=== PATIENT | female | born 1955 | race Caucasian/White ===

== ENCOUNTER → 2016-09-07 | Outpatient (CLI) | payer OTHER ==
[~2016-09-07] MED LIST: DAILY VALUE1 EACH PO; DIOVAN160 MG PO; VITAMIN D31000 UNI2 PO
== END | disposition home or self-care (01) ==
LOC: CDC 15:30
DX: Z01.810 Encounter for preprocedural cardiovascular examination (principal)
CPT/HCPCS: 93000

== ENCOUNTER 2016-09-24 06:31 | Day surgery (SDC) | payer OTHER ==
[~2016-09-24] VITALS: Ht 157.5 cm; Wt 65.7 kg
[2016-09-24 07:29] VITALS: BP 142/77
[2016-09-24 13:20] VITALS: BP 165/94
[2016-09-24 14:20] VITALS: BP 153/95
== END 2016-09-24 14:45 | disposition home or self-care (01) ==
LOC: SDC 06:31
DX: J34.2 Deviated nasal septum (principal); J32.0 Chronic maxillary sinusitis; J30.9 Allergic rhinitis, unspecified; J34.1 Cyst and mucocele of nose and nasal sinus; J33.8 Other polyp of sinus; I10 Essential (primary) hypertension
CPT/HCPCS: 88305; J0131; J0690; J1100; J1170; J2250; J2405; J2710; J3301; J7050